=== PATIENT | male | born 1995 | race Caucasian/White ===

== ENCOUNTER 2019-04-04 08:07 | Emergency (ER) | payer OTHER ==
[~2019-04-04] VITALS: Ht 180.3 cm; Wt 127.0 kg
[2019-04-04] MEDS ORDERED: LEVOFLOXACIN5 ML RIGHTEYE (10:49)
== END 2019-04-04 10:55 | disposition home or self-care (01) ==
LOC: ER 08:07
DX: H57.13 Ocular pain, bilateral (principal)
CPT/HCPCS: 99283

== ENCOUNTER 2022-07-23 17:06 | Emergency (ER) | payer OTHER ==
[~2022-07-23] VITALS: Ht 182.9 cm; Wt 108.9 kg
[~2022-07-23 17:06] MED LIST: LEVOFLOXACIN5 ML RIGHTEYE
== END 2022-07-23 21:35 | disposition home or self-care (01) ==
LOC: ER 17:06
DX: S16.1XXA Strain of muscle, fascia and tendon at neck level, initial encounter (principal); V29.408A Other motorcycle driver injured in collision with unspecified motor vehicles in traffic accident, initial encounter; F17.220 Nicotine dependence, chewing tobacco, uncomplicated
CPT/HCPCS: 72040; 96372; 99283-25; A9270; J1885

== ENCOUNTER → 2024-08-14 | Outpatient (CLI) | payer OTHER | LOC: LAB SHORT 17:20 → LAB 17:20 | DX: R10.9 Unspecified abdominal pain (principal) | CPT/HCPCS: 87086 ==